=== PATIENT | female | born 1940 | race Caucasian/White ===

== ENCOUNTER 2018-04-28 12:36 | Inpatient (IN) ==
[2018-04-28] MEDS ORDERED: Albuterol 2.5 MG/3 ML NEBULIZER IH ONE (12:49)
[2018-04-28] MEDS ORDERED: methylPREDNISolone 125 MG/2 ML VIAL IVP ONE (12:54)
[2018-04-28] MEDS ORDERED: Ipratropium/Albuterol Neb 3 ML IH ONE (12:55)
--- NOTE | 2018-04-28 12:59 | Emergency Department Note ---
Disposition Clinical Impression: CAP (community acquired pneumonia), COPD (chronic obstructive pulmonary disease) Disposition: Admitted As Inpatient Condition: Good Instructions: Chronic Obstructive Pulmonary Disease (ED), Community-acquired Pneumonia (ED) Prescriptions: levoFLOXacin [Levaquin] 750 mg PO DAILY 7 Days #7 tablet Referrals: Jose Juan Desai DO [Primary Care Provider] - Forms: ED Satisfaction Letter, Work/School Release Time of Disposition: 14:06 ( TO ADMIT) SOB HPI - General Chief Complaint: ED General Medical Stated Complaint: nausea, s.o.b., dec energy Time Seen by Provider: 04/28/18 12:56 Source: patient Mode of arrival: ambulatory Limitations: no limitations Nursing Notes Reviewed: Yes Vital Signs Reviewed: Yes - History of Present Illness 78-year-old female, with history of COPD, chronic smoker half a pack to 1 pack a day for the past 40+ years, presents this morning with complaints of shortness of breath, and some associated nausea. Patient denies fever or rigors chills denies any substernal chest pain. She does complaining of nausea, but no vomiting or diarrhea. Patient states that she was diagnosed with COPD, but is not on any nebulizer treatments at home, and has not had any issues with shortness of breath until this year. Pt Subjective Complaint: shortness of breath, cough Onset (ago): day(s) (two to three days) Context: recent illness Severity: mild Consistency/Duration: intermittent Improves with: nothing Worsens with: exertion Known history of: COPD Associated symptoms: Reports: denies other symptoms, cough, sputum production. Denies: chest pain, pain with inspiration, fever, wheezing, orthopnea, lower ex tremity pain, polyuria, polydipsia, parasthesias, palpitations, hemoptysis, diaphoresis, nausea/vomiting, syncope Treatment prior to arrival: none - Related Data Home Medications Medication Instructions Recorded Confirmed Fluticasone/Salmeterol [Advair 1 puff IH BID 04/06/16 04/28/18 250-50 Diskus] Metoprolol Tartrate [Lopressor] 50 mg PO BID 04/06/16 04/28/18 Ranitidine HCl [Acid Computer Assistant] 150 mg PO BID 11/02/16 04/28/18 FLUoxetine HCl [PROzac] 20 mg PO DAILY 04/28/18 04/28/18 Previous Rx's Medication Instructions Recorded levoFLOXacin [Levaquin] 750 mg PO DAILY 7 Days #7 tablet 04/28/18 Allergies Allergy/AdvReac Type Severity Reaction Status Date / Time Penicillins [PCN] Allergy See Verified 04/28/18 12:38 Comments codeine AdvReac Itching Verified 04/28/18 12:38 Constitutional: Denies: fever, chills, weakness, weight change Eyes: Denies: eye pain, eye discharge, vision change ENT ED: Denies: ear pain, throat pain, dental pain, hearing loss, epistaxis, congestion, dysphagia Cardiovascular: Denies: chest pain, palpitations, dyspnea on exertion, edema, syncope Respiratory: Reports: cough, dyspnea. Denies: wheezes, hemoptysis, stridor Gastrointestinal: Denies: abdominal pain, nausea, vomiting, diarrhea, constipation, hematemesis, melena, hematochezia Genitourinary: Denies: dysuria, frequency, hematuria, discharge Musculoskeletal: Denies: back pain, neck pain, arthralgia, myalgia Integumentary: Denies: rash, abrasion, lesions Neurological: Denies: headache, weakness, numbness, paresthesias, confusion, abnormal gait, vertigo Psychiatric: Denies: anxiety, depression, suicidal thoughts, homicidal thoughts, auditory hallucinations, visual hallucinations Endocrine: Denies: fatigue Hematological/Lymphatic: Denies: easy bleeding, easy bruising Allergic/Immunologic: Denies: facial swelling, urticaria Past Medical History - Past Medical History Medical history: Reports: arthritis, hypertension Surgical history: Reports: cholecystectomy, hysterectomy Psychiatric history: Reports: anxiety - Social History Smoking Status: Current every day smoker Smokeless Tobacco Status: No Alcohol use: Reports: none Drug use: Reports: none Physical Exam - General Limitations: no limitations General appearance: alert - Head Head exam: atraumatic, normocephalic, normal inspection - Eye Eye exam: Present: normal appearance, PERRL, EOMI - Expanded Eye Exam Pupils: Left: reactive - ENT ENT exam: normal exam, normal oropharynx, mucous membranes moist - Expanded ENT Exam External ear exam: Present: normal external inspection Mouth exam: Present: normal external inspection Teeth exam: Present: normal inspection Throat exam: Present: normal inspection - Neck Neck exam: Present: normal inspection, full ROM, trachea midline - Chest Chest inspection: Present: normal inspection, symmetric chest wall rise - Respiratory Respiratory exam: Present: wheezes, other (Decreased breath sounds noted bilaterally) - Cardiovascular Cardiovascular exam: Present: regular rate, normal rhythm, normal heart sounds - Abdominal Exam Abdominal exam: Present: soft, Non-Tender. Absent: tenderness, distention, guarding, rebound, rigidity - Extremities Exam Extremities exam: Present: normal inspection, full ROM. Absent: tenderness, pedal edema - Expanded Upper Extremity Exam Shoulder exam: Present: normal inspection, full ROM Arm exam: Present: normal inspection, full ROM Elbow exam: Present: normal inspection, full ROM Forearm/Wrist exam: Present: normal inspection, full ROM Hand exam: Present: normal inspection, full ROM Vascular exam: Normal: capillary refill, radial pulse - Expanded Lower Extremity Exam Hip/Pelvis exam: Present: normal inspection, full ROM Upper leg exam: Present: normal inspection, full ROM Knee exam: Present: normal inspection, full ROM Lower leg exam: Present: normal inspection, full ROM Ankle exam: Present: normal inspection, full ROM Foot/toe exam: Present: normal inspection, full ROM Neurovascular/Tendon exam: Absent: motor deficit, sensory deficit, tendon deficit - Back Exam Back exam: Present: normal inspection, full ROM. Absent: tenderness - Neurological Exam Neurological exam: Present: alert, oriented X3 - Expanded Neurological Exam Patient oriented to: Present: person, place, time Coma Scale Eye Opening: Spontaneous Coma Scale Motor Response: Obeys Commands Coma Scale Verbal Response: Oriented Coma Scale Total: 15 - Psychiatric Psychiatric exam: Present: normal affect, normal mood - Skin Skin exam: Present: warm, dry, intact, normal color Course Vital Signs Temperature 98 F 04/28/18 12:42 Pulse Rate 57 04/28/18 12:42 Respiratory Rate 18 04/28/18 12:42 Blood Pressure 159/98 04/28/18 12:42 O2 Sat by Pulse Oximetry 96 04/28/18 12:42 Temperature 98 F 04/28/18 12:42 Pulse Rate 69 04/28/18 13:57 Respiratory Rate 18 04/28/18 13:57 Blood Pressure 156/82 04/28/18 13:57 O2 Sat by Pulse Oximetry 98 04/28/18 13:57 Oxygen Delivery Oxygen Delivery Room Air Shortness of Breath/Dyspnea - MDM Narrative Medical decision making narrative: Labs are obtained including CBC chemistry troponin, and EKG. BNP level was obtained. Patient was given Solu-Medrol 125 mg IV, DuoNeb 1, albuterol 1. After blood cultures patient was given Rocephin 2 g IV, Zithromax 500 mg IV. Chest x-ray per radiology reading shows a right middle lobe pneumonia. I initially spoke with the patient as she stated that she wanted to go home and take care of her , and then I told her daughter would prefer to have her admitted and she declined, then her daughter showed up, and patient decided to go ahead and stay. I spoke with Dr. Sosa, and patient will be admitted. - Differential Diagnosis Likely: acute exacerbation of chronic obstructive airways disease, congestive heart failure, pneumonia - Medical Records Medical records reviewed: Yes I reviewed the patient's medical records. - Lab Data Lab results reviewed: Yes I reviewed the patient's lab results. Lab results narrative: Mild elevation of white count and BNP level, otherwise no acute process Result diagrams: 04/28/18 13:02 04/28/18 13:02 Lab Results 04/28/18 04/28/18 04/28/18 Range/Units 13:02 13:02 13:02 WBC 11.4 H (4.3-11.1) K/mcL RBC 5.63 H (3.82-4.97) M/mcL Hgb 16.4 H (11.5-15.4) g/dL Hct 50.0 H (35.3-44.9) % MCV 88.8 (83.0-100.0) fL MCH 29.1 (28.0-33.3) pg MCHC 32.8 (31.6-35.5) g/dL RDW 14.9 H (11.5-14.5) % Plt Count 239 (140-400) K/mcL MPV 11.2 (9.4-12.4) fL Immature Gran % 0.4 (0-4) % Seg Neutrophils % 61.6 % Lymphocytes % 22.2 % Monocytes % 12.5 % Eosinophils % 2.7 % Basophils % 0.6 % Neutrophils # 7.0 (1.6-8.9) K/mcL Lymphocytes # 2.5 (0.6-4.6) K/mcL Monocytes # 1.4 H (0.0-1.3) K/mcL Eosinophils # 0.3 (0.0-0.6) K/mcL Basophils # 0.1 (0.0-0.2) K/mcL PT (9.4-12.1) Seconds INR Sodium 141 (136-145) mEq/L Potassium 3.9 (3.5-5.1) mEq/L Chloride 103 (98-107) mEq/L Carbon Dioxide 27 (23-29) mEq/L BUN 17 (8-23) mg/dL Creatinine 1.18 (0.60-1.20) mg/dL Est GFR ( Amer) 54 L (> 60) Est GFR (Non-Af Amer) 45 L (> 60) BUN/Creatinine Ratio 14 (6-26) Glucose 98 (70-105) mg/dL Calculated Osmolality 294 (280-300) Lactic Acid 1.2 (0.5-2.2) mmol/L Calcium 10.3 (8.6-10.3) mg/dL Troponin I < 0.03 (< 0.04) ng/mL B-Natriuretic Peptide (Less than 100) pg/mL 04/28/18 04/28/18 Range/Units 13:02 13:02 WBC (4.3-11.1) K/mcL RBC (3.82-4.97) M/mcL Hgb (11.5-15.4) g/dL Hct (35.3-44.9) % MCV (83.0-100.0) fL MCH (28.0-33.3) pg MCHC (31.6-35.5) g/dL RDW (11.5-14.5) % Plt Count (140-400) K/mcL MPV (9.4-12.4) fL Immature Gran % (0-4) % Seg Neutrophils % % Lymphocytes % % Monocytes % % Eosinophils % % Basophils % % Neutrophils # (1.6-8.9) K/mcL Lymphocytes # (0.6-4.6) K/mcL Monocytes # (0.0-1.3) K/mcL Eosinophils # (0.0-0.6) K/mcL Basophils # (0.0-0.2) K/mcL PT 12.1 (9.4-12.1) Seconds INR 1.1 Sodium (136-145) mEq/L Potassium (3.5-5.1) mEq/L Chloride (98-107) mEq/L Carbon Dioxide (23-29) mEq/L BUN (8-23) mg/dL Creatinine (0.60-1.20) mg/dL Est GFR ( Amer) (> 60) Est GFR (Non-Af Amer) (> 60) BUN/Creatinine Ratio (6-26) Glucose (70-105) mg/dL Calculated Osmolality (280-300) Lactic Acid (0.5-2.2) mmol/L Calcium (8.6-10.3) mg/dL Troponin I (< 0.04) ng/mL B-Natriuretic Peptide 567 H (Less than 100) pg/mL - Radiology Data Radiology results reviewed: Yes I reviewed the patient's radiology results. Per radiology reading, chest x-ray shows a right lower lobe pneumonia. - EKG Data EKG attestation: Yes I reviewed and interpreted this EKG. EKG results narrative: EKG is normal sinus rhythm with a multifocal PAC, no evidence of ischemia. EKG shows normal: Reports: sinus rhythm Rate: Reports: normal Rhythm: Reports: NSR [place] Path/QRS: Reports: normal
[2018-04-28 13:09] LABS: Basophils # 0.1 K/mcL (0.0-0.2); Basophils % 0.6 %; Eosinophils # 0.3 K/mcL (0.0-0.6); Eosinophils % 2.7 %; Hemoglobin 16.4 g/dL (11.5-15.4); Immature Granulocytes % 0.4 % (0-4); Lymphocytes # 2.5 K/mcL (0.6-4.6); Lymphocytes % 22.2 %; Mean Corpuscular HGB Conc 32.8 g/dL (31.6-35.5); Mean Corpuscular Hemoglobin 29.1 pg (28.0-33.3); Mean Corpuscular Volume 88.8 fL (83.0-100.0); Mean Platelet Volume 11.2 fL (9.4-12.4); Monocytes # 1.4 K/mcL (0.0-1.3); Monocytes % 12.5 %; Platelet Count 239 K/mcL (140-400); Red Blood Count 5.63 M/mcL (3.82-4.97); Red Cell Distribution Width 14.9 % (11.5-14.5); Segmented Neutrophils % 61.6 %
[2018-04-28 13:19] LABS: INR 1.1; Prothrombin Time 12.1 Seconds (9.4-12.1)
[2018-04-28 13:28] LABS: BUN/Creatinine Ratio 14 (6-26); Blood Urea Nitrogen 17 mg/dL (8-23); Calcium 10.3 mg/dL (8.6-10.3); Carbon Dioxide 27 mEq/L (23-29); Chloride 103 mEq/L (98-107); Glucose 98 mg/dL (70-105); Osmolality,Calculated 294 (280-300); Potassium 3.9 mEq/L (3.5-5.1); Sodium 141 mEq/L (136-145); eGFR For Non-African Americans 45 (> 60)
[2018-04-28 13:30] LABS: Troponin I < 0.03 ng/mL (< 0.04)
[2018-04-28] MEDS ORDERED: cefTRIAXone 2,000 MG in 0.9 % Sodium Chloride Mini Bag 100 ML IVPB ONE (14:01)
[2018-04-28] MEDS ORDERED: Azithromycin 500 MG in D5% in Water 250 ML IVPB ONE (14:36)
[2018-04-28 19:02] LABS: Bilirubin,Urine Negative (Negative); Blood,Urine Negative (Negative); Clarity,Urine Clear (Clear); Color,Urine Yellow (Yellow); Glucose,Urine (UA) Normal (Normal); Ketones,Urine 40 mg/dL (Negative); Leukocyte Esterase,Urine Negative (Negative); Nitrite,Urine Positive (Negative); Protein,Urine >=300 mg/dL (Neg-Trace); Specific Gravity,Urine >= 1.030 (1.010-1.025); Urobilinogen,Urine Normal (Normal)
[2018-04-28 19:20] LABS: Bacteria,Urine Moderate per hpf (None-Few); Hyaline Casts,Urine Few per lpf (None-Few); Mucus,Urine Moderate (Few); RBC,Urine 0-3 per hpf (0-3); Squamous Epithelial Cell,Urine Few per lpf (None-Few); WBC,Urine 0-3 per hpf (0-3)
[2018-04-28] MEDS: Famotidine 20 MG TABLET PO SCH (20:15)
[2018-04-28] MEDS: Budesonide/Formoterol 160/4.5 1 PUFF INH IH SCH (21:57)
[2018-04-29] MEDS: FLUoxetine 20 MG CAPSULE PO SCH (09:30)
[2018-04-29] MEDS: Budesonide/Formoterol 160/4.5 1 PUFF INH IH SCH ×2 (09:32→21:50)
--- NOTE | 2018-04-29 11:31 | Internal Med History&Physical ---
Date of Encounter: 04/29/18 Time of Encounter: 10:55 Assessment and Plan (1) COPD (chronic obstructive pulmonary disease) Current visit: Yes Status: Chronic Chest CT will be done to further evaluate. Continue Symbicort. Qualifiers: COPD type: unspecified COPD Qualified Code(s): J44.9 - Chronic obstructive pulmonary disease, unspecified (2) CAP (community acquired pneumonia) Current visit: Yes Status: Acute She received Rocephin and Zithromax in emergency room. We will continue these and monitor. Order chest CT as per above. Qualifiers: Laterality: unspecified laterality Qualified Code(s): J18.9 - Pneumonia, unspecified organism (3) Splenomegaly Current visit: Yes Status: Acute Order abdominal CT to further evaluate. (4) Elevated brain natriuretic peptide (BNP) level Current visit: Yes Status: Acute Order echocardiogram to further evaluate. (5) Elevated hemoglobin Current visit: Yes Status: Acute Recheck CBC in a.m. Check room air oximetry on 6 minute walk in a.m. (6) CKD (chronic kidney disease) stage 3, GFR 30-59 ml/min Current visit: Yes Status: Chronic Monitor renal indices. (7) Hypertension Current visit: Yes Status: Chronic Continue metoprolol and monitor blood pressure. Qualifiers: Hypertension type: essential hypertension Qualified Code(s): I10 - Essential (primary) hypertension Internal Medicine - H&P: HPI Chief complaint: Dyspnea and nausea Admitted From: Emergency Dept Plans for Post Hospital Care: Home History of present illness: Ms. Magallanes is a 78 year old female came to emergency room stating she had one week history of increased dyspnea on exertion. She had nausea without vomiting or significant diarrhea. She was evaluated emergency room and felt to have exacerbation of COPD with possible pneumonia. She was admitted to [facility] floor for ongoing care needs. She states her breathing has improved. Respiratory history as significant for having smoked since age 27 up to 2 packs per day. She states she did not inhale all the cigarettes when she "burned through" 2 packs per day. She states she has been told she has COPD but does not recall PFTs being done. She does not use home oxygen. She has not been tested for sleep apnea. Past Med Surg Social Fam HX - Past Medical History Medical history: arthritis, hypertension Additional medical history: kidney failure Psychiatric history: anxiety - Past Surgical History Surgical History: cholecystectomy, hysterectomy Additional surgical history: tonsillectomy - Social History Smoking Status: Current every day smoker Packs per day: 1/2-1 Smokeless Tobacco Status: No Alcohol use: none Drug use: none Internal Medicine - H&P: Meds Fluticasone/Salmeterol [Advair 250-50 Diskus] 1 puff IH BID 04/06/16 [History] Metoprolol Tartrate [Lopressor] 50 mg PO BID 04/06/16 [History] Ranitidine HCl [Acid Instructional Leader] 150 mg PO BID 11/02/16 [History] FLUoxetine HCl [PROzac] 20 mg PO DAILY 04/28/18 [History] Olmesartan Medoxomil [Benicar] 20 mg PO DAILY 04/28/18 [History] levoFLOXacin [Levaquin] 750 mg PO DAILY 7 Days #7 tablet 04/28/18 [Rx] Allergy/AdvReac Type Severity Reaction Status Date / Time Penicillins [PCN] Allergy See Verified 04/28/18 12:38 Comments codeine AdvReac Itching Verified 04/28/18 12:38 All Systems PM: A 10-system review of systems was performed and is negative for pertinent findings except as documented above in the HPI. Review of systems: Gen.: She states her weight fluctuated with a decrease followed by regain f approximately 20 pounds in the past year back to her usual adult weight at present. Cardiovascular: She has history of hypertension. Echocardiogram 08/24/2015 showed LVEF of 60-65% and reported mild diastolic dysfunction. She denies chest pain but does have dyspnea on exertion. She denies HI DVT or pulmonary embolus. Respiratory: As per history of present illness GI: She has occasional GERD symptoms. She has had cholecystectomy. She states she was told in the past she had an enlarged spleen but it was not recommended she have splenectomy. The etiology of the enlargement was not told her. She reports unremarkable colonoscopy done 2017. She denies disorders of her liver or exocrine pancreas. 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 She denies other kidney or bladder disorders Neurologic: She denies large distribution strokes or seizures. Endocrine: She denies diabetes thyroid disease or hyperlipidemia Hematology/oncology: She denies blood disorders cancers or anemia Psychiatric: She has depression but denies anxiety or other mental health issues. [place] skeletal: She has DJD but denies gout or other bone joint or muscle disorders. - Constitutional Vitals: Temp Pulse Resp BP Pulse Ox 98.5 F 60 17 164/83 95 04/29/18 11:27 04/29/18 11:27 04/29/18 11:27 04/29/18 11:27 04/29/18 11:27 Exam: Gen.: She is a well-developed well-nourished female lying comfortably in bed who appears in no acute distress at present time HEENT: Head is atraumatic and normocephalic. Eyes: EOMI. There is no scleral icterus. Mouth: Mucosa is moist. Neck: Supple and nontender. There is no thyromegaly or adenopathy noted. Heart: Regular without murmurs gallops or ectopics Lungs: No wheezes or crackles are heard. Abdomen: Soft and nontender. No masses or guarding are noted. Extremities: There is no cyanosis edema or clubbing noted. Dorsalis pedis and posttibial pulses are trace to 1+ palpable bilaterally. Her feet are warm to touch. She has hallux valgus changes bilaterally. She has DJD changes of her hands. Neurologic: Mental status: She is talkative and a good historian. Cranial ner ves: Smile is symmetric. Forehead wrinkles bilaterally. Tongue protrudes midline. EOMI. Motor: There is no pronator drift. Cerebellar: Finger to nose is intact bilaterally. Skin: Warm and dry Internal Med - H&P Results - Labs CBC & Chem 7: 04/28/18 13:02 04/28/18 13:02 Labs: Short CBC 04/28/18 Range/Units 13:02 WBC 11.4 H (4.3-11.1) K/mcL Hgb 16.4 H (11.5-15.4) g/dL Hct 50.0 H (35.3-44.9) % Plt Count 239 (140-400) K/mcL Neutrophils # 7.0 (1.6-8.9) K/mcL BMP 04/28/18 13:02 Sodium 141 Potassium 3.9 Chloride 103 Carbon Dioxide 27 BUN 17 Creatinine 1.18 Glucose 98 Calcium 10.3 Cardiac Enzymes 04/28/18 Range/Units 13:02 Troponin I < 0.03 (< 0.04) ng/mL Urine 04/28/18 Range/Units 18:32 Urine Color Yellow (Yellow) Urine Clarity Clear (Clear) Urine pH 6.0 (5.0-8.0) pH Units Ur Specific [place] >= 1.030 H (1.010-1.025) Urine Protein >=300 H (Neg-Trace) mg/dL Urine Glucose (UA) Normal (Normal) mg/dL - Impressions ITS Impressions Chest X-Ray 04/28/18 12:49 IMPRESSION: Mild bibasilar atelectasis versus pneumonia with small left parapneumonic effusion. D/ / Markell Delarosa MD / Markell Delarosa MD Interpreting Provider: Markell Delarosa MD
[2018-04-29] MEDS ORDERED: cefTRIAXone 1,000 MG in Water for inj. (sterile) 20 ML 10 ML IVP SCH (12:00)
[2018-04-29] MEDS ORDERED: Azithromycin 500 MG in D5% in Water 250 ML IVPB SCH (12:00)
[2018-04-29] MEDS: 0.45 % Sodium Chloride w/KCl 20 MEQ/1,000 ML MLS IVC SCH (12:27)
[2018-04-29] MEDS: Lactobacillus 1 EACH CAP.SPRINK PO SCH (20:15)
[2018-04-29] MEDS: Famotidine 20 MG TABLET PO SCH (20:15)
[2018-04-29] MEDS ORDERED: Acetaminophen 325 MG TABLET PO PRN (20:18)
[2018-04-30 05:55] LABS: Basophils # 0.1 K/mcL (0.0-0.2); Basophils % 0.4 %; Eosinophils # 0.1 K/mcL (0.0-0.6); Hematocrit 44.3 % (35.3-44.9); Hemoglobin 14.4 g/dL (11.5-15.4); Immature Granulocytes % 0.2 % (0-4); Lymphocytes # 3.3 K/mcL (0.6-4.6); Lymphocytes % 26.6 %; Mean Corpuscular HGB Conc 32.5 g/dL (31.6-35.5); Mean Corpuscular Hemoglobin 28.9 pg (28.0-33.3); Mean Platelet Volume 10.9 fL (9.4-12.4); Monocytes # 1.3 K/mcL (0.0-1.3); Neutrophils # 7.7 K/mcL (1.6-8.9); Platelet Count 214 K/mcL (140-400); Red Blood Count 4.98 M/mcL (3.82-4.97); Segmented Neutrophils % 61.8 %
[2018-04-30] MEDS: 0.45 % Sodium Chloride w/KCl 20 MEQ/1,000 ML MLS IVC SCH (06:01)
[2018-04-30 06:25] LABS: Alanine Aminotransferase 16 Units/L (7-52); Albumin 3.4 g/dL (3.5-5.7); Albumin/Globulin Ratio 1.2 (1.1-2.2); Alkaline Phosphatase 60 Units/L (34-104); Aspartate Amino Transferase 18 Units/L (13-39); BUN/Creatinine Ratio 18 (6-26); Bilirubin,Total 0.4 mg/dL (0.3-1.0); Blood Urea Nitrogen 19 mg/dL (8-23); Calcium 9.6 mg/dL (8.6-10.3); Carbon Dioxide 26 mEq/L (23-29); Chloride 106 mEq/L (98-107); Globulin 2.8 g/dL (2.4-3.5); Glucose 115 mg/dL (70-105); Osmolality,Calculated 289 (280-300); Potassium 4.3 mEq/L (3.5-5.1); Sodium 138 mEq/L (136-145); Total Protein 6.2 g/dL (6.4-8.9); eGFR For Non-African Americans 52 (> 60)
[2018-04-30 06:35] LABS: Thyroid Stimulating Hormone 2.032 mcIU/mL (0.340-5.600)
[2018-04-30 07:44] VITALS: BP 154/81
[2018-04-30] MEDS: FLUoxetine 20 MG CAPSULE PO SCH (08:23)
[2018-04-30] MEDS: Lactobacillus 1 EACH CAP.SPRINK PO SCH (08:24)
[2018-04-30] MEDS: Budesonide/Formoterol 160/4.5 1 PUFF INH IH SCH (10:16)
--- NOTE | 2018-04-30 10:26 | Discharge Summary ---
Date of Encounter: 04/30/18 Time of Encounter: 10:18 - Discharge Diagnosis (1) CAP (community acquired pneumonia) Priority: Primary Status: Acute Qualifiers: Laterality: unspecified laterality Qualified Code(s): J18.9 - Pneumonia, unspecified organism (2) COPD (chronic obstructive pulmonary disease) Priority: Secondary Status: Chronic Qualifiers: COPD type: unspecified COPD Qualified Code(s): J44.9 - Chronic obstructive pulmonary disease, unspecified (3) Splenomegaly Priority: Secondary Status: Resolved (4) Elevated brain natriuretic peptide (BNP) level Priority: Secondary Status: Acute (5) Elevated hemoglobin Priority: Secondary Status: Acute (6) CKD (chronic kidney disease) stage 3, GFR 30-59 ml/min Priority: Secondary Status: Chronic (7) Hypertension Priority: Secondary Status: Chronic Qualifiers: Hypertension type: essential hypertension Qualified Code(s): I10 - Essential (primary) hypertension Hospital course: Ms. Magallanes is a 78 year old female who came to emergency room stating she had one week history of increased dyspnea on exertion. She had nausea without vomiting or significant diarrhea. She was evaluated in emergency room and felt to have exacerbation of COPD with possible pneumonia. She was admitted to [facility] floor for ongoing care needs. Initial orders were written by the emergency room physician. I saw her on April 29 and performed a history and physical. CT of chest abdomen pelvis was done to further evaluate. Chest CT showed small consolidation seen in the lung bases. CT of abdomen/pelvis was unremarkable for acute pathology. WBC was slightly elevated at 12.5 on day of discharge but there was no left shift. She was started empirically on IV Rocephin and Zithromax on admission. She will continue with oral Ceftin and Zithromax with lactobacillus for 5 additional days at discharge. I encouraged her to become a nonsmoker. Hemoglobin returned to normal range at 14.4 on day of discharge. Creatinine decreased to 1.04 with IV fluids. Her PCP and/or industrial cook can monitor this. On April 30 she felt improved and stable for discharge home. She will follow with Dr. Desai within 1 week. Room air oximetry will be checked on 6 minute walk prior to discharge. - Time Spent with Patient Total time spent providing and/or coordinating discharge services: - Discharge Medications Prescriptions: Cefuroxime PO [Ceftin] 500 mg PO Q12HR #10 tablet Azithromycin [Zithromax] 250 mg PO DAILY #5 tablet Lactobacillus [Culturelle] 1 each PO BID #10 cap.[email or web address] Home Medications: Fluticasone/Salmeterol [Advair 250-50 Diskus] 1 puff IH BID 04/06/16 [History] Metoprolol Tartrate [Lopressor] 50 mg PO BID 04/06/16 [History] Ranitidine HCl [Acid Freezer Unloader] 150 mg PO BID 11/02/16 [History] FLUoxetine HCl [Prozac] 20 mg PO DAILY 04/28/18 [History] Olmesartan Medoxomil [Benicar] 20 mg PO DAILY 04/28/18 [History] Azithromycin [Zithromax] 250 mg PO DAILY #5 tablet 04/30/18 [Rx] Cefuroxime PO [Ceftin] 500 mg PO Q12HR #10 tablet 04/30/18 [Rx] Lactobacillus [Culturelle] 1 each PO BID #10 cap.[email or web address] 04/30/18 [Rx] Allergies/Adverse Reactions: Allergy/AdvReac Type Severity Reaction Status Date / Time Penicillins [PCN] Allergy See Verified 04/28/18 12:38 Comments codeine AdvReac Itching Verified 04/28/18 12:38 Date of admission: 04/28/18 15:29 Primary care physician: Jose Juan Desai DO - Constitutional Vitals: Temp Pulse Resp BP Pulse Ox 97.9 F 83 15 154/81 97 04/30/18 06:00 04/30/18 06:00 04/30/18 06:00 04/30/18 06:00 04/30/18 08:27 - Patient Status Disposition: Home, Self-Care Condition: Good - Discharge Instructions Follow Up With: Jose Juan Desai DO [Primary Care Provider] - 1 week - Diet and Activity Activity: resume usual activities as tolerated Diet: advance to your usual diet
--- NOTE | 2018-05-01 16:30 | Electrocardiograph Report ---
[address] [address] Test Date: 2018-04-28 Pat Name: Tamy Magallanes Department: [id number] Room: [facility] Gender: F Onion Farmer: [id number] 1940 Requested By: Ernestine Joseph Order Number: [id number] Reading MD: Daniel Izquierdo Measurements Intervals [place] Rate: 74 P: 58 TX: 169 QRS: -20 QRSD: 78 T: 0 QT: 385 QTc: 412 Interpretive Statements SINUS BRADYCARDIA WITH FREQUENT SUPRAVENTRICULAR PREMATURE COMPLEXES NONSPECIFIC T-WAVE ABNORMALITY Electronically Signed On 05-01-2018 16:28:57 EST by Daniel Izquierdo
== END 2018-04-30 12:47 | disposition home or self-care (01) | DRG 194 ==
LOC: EMEROOPIK 12:36 → OBSVTOIN 15:29 → INTOOBSV 15:29 → INPPIK 15:29
PROVIDERS: ADMIT Internal Medicine; ATTEND Internal Medicine